=== PATIENT | male | born 1955 | race Caucasian/White ===

== ENCOUNTER 2016-06-23 18:54 | Observation (INO) | payer OTHER ==
[2016-06-23] MEDS ORDERED: ASPIRIN CHEW 81 MG TABLET PO STA (19:17)
--- NOTE | 2016-06-23 19:19 | ED Physician Documentation ---
PD HPI CHEST PAIN - Stated complaint Stated Complaint: CHEST PAIN - Chief complaint Chief Complaint: Cardiac - History obtained from History obtained from: Patient - History of Present Illness Timing - onset: Today Timing - onset during: Rest Timing - duration: Hours (1) Timing - details: Abrupt onset, Now resolved Pain level max: 6 Pain level now: 0 Quality: Pressure, Tightness, Aching Location: Substernal Radiation: Neck Improved by: Nothing Worsened by: No: Exertion, Inspiration, Eating, Movement, Palpation, Position Associated symptoms: Nausea. No: Shortness of air, Diaphoresis, Vomiting, Feeling faint / dizzy, General Weakness, Palpitations Similar symptoms before: Has not had sx before Recently seen: Not recently seen - Additional information Additional information: being worked up for possible Hemochromatosis. Review of Systems Ten Systems: 10 systems reviewed and negative Constitutional: denies: Fever, Chills Respiratory: denies: Cough, Wheezing GI: denies: Abdominal Pain, Nausea, Vomiting, Diarrhea Skin: denies: Rash Musculoskeletal: denies: Neck pain, Back pain Neurologic: denies: Headache PD PAST MEDICAL HISTORY - Past Medical History Past Medical History: Yes : Kidney stones - Past Surgical History Past Surgical History: Yes General: Appendectomy - Present Medications Home Medications: Ambulatory Orders Medication Instructions Recorded Confirmed Ibuprofen 600 mg QID PRN 07/05/14 07/05/14 Oxycodone HCl/Acetaminophen 1 each PO Q6H PRN #10 tablet 07/05/14 [Percocet 5-325 mg Tablet] diazePAM [Valium] 5 mg PO TID PRN #15 tablet 07/05/14 predniSONE [Deltasone] 40 mg PO DAILY 5 Days 07/05/14 - Allergies Allergies/Adverse Reactions: Allergies Allergy/AdvReac Type Severity Reaction Status Date / Time No Known Drug Allergies Allergy Verified 06/23/16 19:03 - Social History Does the pt smoke?: No Smoking Status: Never smoker Does the pt drink ETOH?: Yes Does the pt have substance abuse?: No PD ED PE NORMAL - Vitals Vital signs reviewed: Yes - General General: Alert and oriented X 3, No acute distress - HEENT HEENT: PERRL, Moist mucous membranes - Neck Neck: Supple, no meningeal sign, No bruit - Cardiac Cardiac: RRR - Respiratory Respiratory: No respiratory distress, Clear bilaterally - Abdomen Abdomen: Soft, Non tender - Back Back: No spinal TTP - Derm Derm: Warm and dry, No rash - Extremities Extremities: No edema, No calf tenderness / cord - Neuro Neuro: Alert and oriented X 3 - Psych Psych: Normal mood, Normal affect Results - Vitals Vitals: Vital Signs - 24 hr 06/23/16 06/23/16 06/23/16 18:58 19:24 19:36 Temperature 36.5 C Heart Rate 67 64 68 Respiratory 18 19 18 Rate Blood Pressure 171/99 H 173/104 H 135/91 H O2 Saturation 99 96 95 Oxygen O2 Source Room air - EKG (time done) 1859 Rate: Rate (enter#) (69) Rhythm: NSR [place]: Normal Intervals: Normal CA QRS: Normal Ischemia: Non specific changes Computer interpretation: Agree with computer - Labs Labs: Laboratory Tests 06/23/16 06/23/16 06/23/16 19:05 19:05 19:05 WBC 8.6 RBC 5.03 Hgb 15.3 Hct 46.0 MCV 91.4 MCH 30.5 MCHC 33.4 RDW 12.7 Plt Count 198 MPV 8.4 Neut # 4.2 Lymph # 3.2 [place] # 1.0 Eos # 0.2 Baso # 0.1 Absolute Nucleated RBC 0.00 Nucleated RBCs 0.0 Sodium 135 Potassium 4.2 Chloride 100 L Carbon Dioxide 26 Anion Gap 9.0 BUN 15 Creatinine 0.9 Estimated GFR (MDRD) 86 L Glucose 84 Calcium 9.6 Total Bilirubin 0.5 AST 28 ALT 31 Alkaline Phosphatase 93 Troponin I < 0.04 Total Protein 7.2 Albumin 4.6 Globulin 2.6 Albumin/Globulin Ratio 1.8 Lipase 36 - Rads (name of study) cxr Radiology: Prelim report reviewed, EMP read contemporaneously, See rad report ( Poor inspiration with mild left basilar atelectasis and/or early airspace disease. ) PD MEDICAL DECISION MAKING - ED course Complexity details: reviewed results, re-evaluated patient, considered differential (No ST elevation SC, no aortic dissection, no PE, no tension pneumothorax, no aortic aneurysm), d/w patient, d/w family ED course: Patient is a 60-year-old male who presents to the emergency department with substernal chest pain today. This resolved prior to arrival in the emergency department. Given aspirin here. He does have a strong family history of coronary artery disease. No acute findings on EKG, initial troponin is negative. Will place the patient in observation for serial cardiac enzymes and rule out SC. No evidence of aortic dissection. Discussed the case with Dr. Mackay, hospitalist who accepts This document was made in part using voice recognition software. While efforts are made to proofread this document, sound alike and grammatical errors may occur. Departure - Departure Disposition: ED Place in Observation Clinical Impression: Chest pain Qualifiers: Chest pain type: unspecified Qualified Code(s): R07.9 - Chest pain, unspecified Condition: Good Discharge Date/Time: 06/23/16 22:02
[2016-06-23 19:23] LABS: BASOPHILS # (AUTO) 0.1 10^3/uL (0.0-0.1); BASOPHILS % (AUTO) 1.3 %; EOSINOPHILS # (AUTO) 0.2 10^3/uL (0.0-0.7); EOSINOPHILS % (AUTO) 2.2 %; HGB - HEMOGLOBIN 15.3 g/dL (14.0-18.0); LYMPHOCYTES # (AUTO) 3.2 10^3/uL (1.5-3.5); LYMPHOCYTES % (AUTO) 37.3 %; MEAN CORPUSCULAR HEMOGLOBIN 30.5 pg (27.0-31.0); MEAN CORPUSCULAR HGB CONC 33.4 g/dL (32.0-36.0); MEAN CORPUSCULAR VOLUME 91.4 fL (80.0-94.0); MEAN PLATELET VOLUME 8.4 fL (7.4-11.4); MONOCYTES % (AUTO) 11.1 %; NEUTROPHILS # (AUTO) 4.2 10^3/uL (1.5-6.6); NEUTROPHILS % (AUTO) 48.1 %; RED BLOOD COUNT 5.03 10^6/uL (4.70-6.10); RED CELL DISTRIBUTION WIDTH 12.7 % (12.0-15.0); UNCORRECTED WHITE BLOOD COUNT 8.6 x10^3/uL; WHITE BLOOD COUNT 8.6 x10^3/uL (4.8-10.8)
[2016-06-23 19:30] LABS: ALBUMIN/GLOBULIN RATIO 1.8 (1.0-2.2); BILIRUBIN,TOTAL 0.5 mg/dL (0.2-1.0); CALCIUM 9.6 mg/dL (8.5-10.3); CREATININE 0.9 mg/dL (0.6-1.2); POTASSIUM 4.2 mmol/L (3.5-5.0); TOTAL PROTEIN 7.2 g/dL (6.7-8.2)
[2016-06-23] MEDS ORDERED: ASPIRIN CHEW 81 MG TABLET ONE (19:30)
--- NOTE | 2016-06-23 20:08 | XRAY Report ---
EXAM: CHEST RADIOGRAPHY EXAM DATE: 06/23/2016 07:25 PM. CLINICAL HISTORY: Chest pain. COMPARISON: PA chest and left rib series 02/15/2008. Chest CT 02/10/2006. TECHNIQUE: 1 view. FINDINGS: Lungs/Pleura: Diminished lung volumes. Mild left cardiophrenic angle opacity. No pneumothorax. Mediastinum: Within exam limitations, cardiomediastinal contour is normal. Other: Spurring of right transverse process and adjacent rib. IMPRESSION: 1. Poor inspiration with mild left basilar atelectasis and/or early airspace disease. [facility] Referring Provider Line: [phone] SITE ID: [id number]
--- NOTE | 2016-06-23 20:08 | XRAY Preliminary Report ---
Exam: XR Chest 1 View IMPRESSION: 1. Poor inspiration with mild left basilar atelectasis and/or early airspace disease. [facility] SITE ID: [id number]
[2016-06-23] MEDS ORDERED: diazePAM 5 MG TABLET PO PRN (20:24)
[2016-06-23] MEDS ORDERED: ACETAMINOPHEN 325 MG TABLET PO PRN (20:26)
[2016-06-23] MEDS ORDERED: oxyCODONE 5 MG TABLET PO PRN ×2 (20:26)
[2016-06-23] MEDS ORDERED: MORPHINE 2 MG/ML SYRINGE IVP PRN (20:26)
[2016-06-23] MEDS ORDERED: IBUPROFEN 600 MG TABLET PO PRN (20:26)
[2016-06-23] MEDS ORDERED: ONDANSETRON 4 MG/2 ML VIAL IVP PRN (20:26)
[2016-06-23] MEDS ORDERED: NITROGLYCERIN SL 0.4 MG TABLET SL PRN (20:26)
[2016-06-23] MEDS ORDERED: PROCHLORPERAZINE 10 MG/2 ML VIAL IVP PRN (20:26)
[2016-06-23] MEDS ORDERED: ZOLPIDEM 5 MG TABLET PO PRN (20:26)
[2016-06-23] MEDS ORDERED: SODIUM CHLORIDE FLUSH 0.9% 10 ML SYRINGE IVP PRN (20:26)
[2016-06-23] MEDS ORDERED: ATORVASTATIN 40 MG TABLET PO SCH (21:00)
[2016-06-23] MEDS: SODIUM CHLORIDE FLUSH 0.9% 10 ML SYRINGE IVP SCH (22:35)
--- NOTE | 2016-06-23 23:22 | HISTORY & PHYSICAL EXAMINATION ---
Chief Complaint - Chief Complaint Chief Complaint: Chest Pain History of Present Illness - Admitted From Admitted From:: Emergency Department - History Obtained From Records Reviewed: Yes History obtained from: Patient Exam Limitations: None - History of Present Illness HPI Comment/Other: Patient is a 60 yo male with past medical history of presumed diagnosis of hemachromatosis being worked up by hematology and family history of CAD who presented to the ED with complaint of chest pain. Pain started in the evening prior to dinner. Patient states he was sitting and relaxing, he had had 3 beers and then felt a tightness in his chest. Initially he tried to ignore it but it became more persistent and increased in intensity. Pain was located in the left chest and there was associated nausea. Patient described the pain as burning and sharp. He states he has had pain in his chest in the past from GERD but this was different. Patient states that he had also woken up in the middle of night the day before with a left sided chest pain that was worsened by touching his chest wall. It had resolved when he got up in the morning. The pain lasted for about 1 hour and had almost completely resolved by the time he arrived in the ED. Patient denies any fevers, chills, cough or shortness of air. He also denies any lower extremity swelling, orthopnea or PND. He stated there was nothing that made it better or worse. On presentation to the ED patient had stable vitals. EKG showed non specific T wave flattening and initial trop was negative. Patient placed in obs for rule out of ACS. Review of Systems - Constitutional Constitutional: denies: Fatigue, Fever, Chills, Malaise, Weakness, Poor appetite , Diaphoresis, Night sweats, Weight gain, Weight loss, Other - Eyes Eyes: denies: Pain, Irritation, Amaurosis, Blurred vision, Spots in vision, Field loss, Vision loss, Dipolpia, Corrective lenses, Other - Ears, Nose & Throat Ears, Nose & Throat: denies: Ear pain, Hearing loss, Hearing aids, Tinnitus, Vertigo, Nasal pain, Nasal discharge, Nosebleeds, Nasal obstruction, Nasal congestion, Postnasal drainage, Dentures, Sore throat, Hoarseness, Mouth lesions , Bleeding gums, Dental decay, Dental pain, Other - Cardiovascular Cariovascular: reports: Chest pain. denies: Irregular heart rate, Edema, Lightheadedness, Syncope, Exertional dyspnea, Decr. exercise tolerance, Orthopnea - Respiratory Respiratory: denies: Cough, Sputum production, Wheezing, Snoring, Hemoptysis, Orthopnea, SOB at rest, SOB with exertion, Apnea, Stridor, Pleuritic pain, Other - Gastrointestinal Gastrointestinal: reports: Nausea. denies: Abdominal pain, Abdominal distention , Constipation, Diarrhea, Black stools, Bloody stools, Vomiting - Genitourinary Genitourinary: denies: Dysuria, Frequency, Urgency, Hematuria, Incontinence, Flank pain, Nocturia, Urethral discharge, Sexual dysfunction, Other - Musculoskeletal Musculoskeletal: reports: Muscle pain (neck pain), Back pain, Muscle aches. denies: Stiffness, Limited range of motion, Muscle weakness, Gout, Joint pain, Joint swelling - Integumentary Integumentary: denies: Rash, Pruritis, Lesions, Dryness, Lumps, Acne, Pigment changes, Nail changes, Hair changes, Other - Neurological Neurological: denies: General weakness, Focal weakness, Headache, Dizziness, Numbness, Memory problems, Pre-existing deficit, Abnormal gait, Seizures, Incoordination, Slurred speech, Other - Psychiatric Psychiatric: denies: Depression - Endocrine Endocrine: denies: Polyuria, Polydypsia, Polyphagia, Intolerance to cold, Intolerance to heat, Other History - Past Medical History Cardiovascular: reports: None Respiratory: reports: None Neuro: reports: None Endocrine/Autoimmune: reports: None GI: reports: None : reports: Kidney stones HEENT: reports: None Psych: reports: None Musculoskeletal: reports: None Derm: reports: None MRSA Hx?: No Other Past Medical History: Hematochromatosis - Past Surgical History General: reports: Appendectomy - Family & Social History Family History: Mother: Cancer (Lung), Father: CAD (3 brothers all before 65 with MIs and sister had CAD), Sister: CAD, Diabetes, Type 2, Brother: CAD Living arrangement: At home Living Situation: With spouse/s.o. Social History Notes: 3 Kids, live in [place] since 1968, for 33 years , works in construction. - Substance History Use: Uses substance without health or social issues: Alcohol (2-3 beers a day) - POLST Patient has POLST: No POLST Status: Full Code Meds/Allgy - Home Medications Home Medications: Ambulatory Orders Medication Instructions Recorded Confirmed Ibuprofen 600 mg QID PRN 07/05/14 07/05/14 Oxycodone HCl/Acetaminophen 1 each PO Q6H PRN #10 tablet 07/05/14 [Percocet 5-325 mg Tablet] diazePAM [Valium] 5 mg PO TID PRN #15 tablet 07/05/14 predniSONE [Deltasone] 40 mg PO DAILY 5 Days 07/05/14 - Allergies Allergies/Adverse Reactions: Allergies Allergy/AdvReac Type Severity Reaction Status Date / Time No Known Drug Allergies Allergy Verified 06/23/16 19:03 Exam - Vital Signs Reviewed Vital Signs: Yes Vital Signs: Vital Signs x48h Temp Pulse Pulse Resp BP BP Pulse Ox 06/23/16 22:10 36.7 C 55 L 18 172/90 H 98 06/23/16 20:52 59 L 16 132/88 H 98 - Physical Exam General Appearance: positive: No acute distress, Alert, Anxious Eyes Bilateral: positive: Normal inspection, PERRL, EOMI, No lid inflammation, Conjunctivae nml, No scleral icterus ENT: positive: ENT inspection nml, Pharynx nml, No signs of dehydration. negative: Purulent nasal drainage, Pharyngeal erythema, Oral lesions Neck: positive: Nml inspection, Thyroid nml, No JVD, Trachea midline. negative : Thyromegaly, Lymphadenopathy (R), Lymphadenopathy (L) Respiratory: positive: Chest non-tender, No respiratory distress, Breath sounds nml. negative: Wheezes, Rales, Rhonchi Cardiovascular: positive: Regular rate & rhythm, No murmur, No gallop Peripheral Pulses: positive: 2+ Abdomen: positive: Non-tender, No organomegaly, Nml bowel sounds, No distention. negative: Guarding, Rebound, Hepatomegaly, Splenomegaly Back: positive: Other (Contracted muscles in the neck) Skin: positive: Color nml, No rash, Warm Extremities: positive: Non-tender, Full ROM, Nml appearance, No pedal edema Neurologic/Psychiatric: positive: Oriented x3, CN's nml (2-12), Motor nml, Sensation nml, Mood/affect nml Conclusion/Plan - Problem List (1) Chest pain Conclusion/Plan: Presented with left sided chest pain at rest, resolved after 1 hour without any intervention Patient has risk factors of hemachromatosis which can cause dilated cardiomyopathy and family history of CAD Initial EKG showed non specific t wave changes but no ST elevations Initial trop negative Place in obs for ACS rule out Plan: Tele Serial Trops ASA, Lipitor Lipid profile Echo in am If tests negative then will need stress test as outpatient Qualifiers: Chest pain type: unspecified Qualified Code(s): R07.9 - Chest pain, unspecified (2) Back spasm Conclusion/Plan: Back and neck spasms with obvious muscle contractions of neck Patient does not want muscle relaxant Ibuprofen for pain (3) Hemochromatosis Conclusion/Plan: Being worked up has elevated ferritin Patient will follow up with hematology and PCP Donating blood tomorrow - Lab Results Lab results reviewed: Yes Fish Bones: 06/23/16 19:05 06/23/16 19:05 - Diagnostic Imaging Results Diagnostic Imaging Results: positive: Final report reviewed - EKG Results EKG Interpreted Independently: Yes EKG Findings: non specific changes Issues/Core Measures - Anticipated LOS Anticipated Stay Length: Less than 2 midnights - DVT/VTE - Prophylaxis VTE/DVT Prophylaxis med ordered at admit?: Yes
[2016-06-24 02:23] LABS: BASOPHILS # (AUTO) 0.1 10^3/uL (0.0-0.1); BASOPHILS % (AUTO) 1.2 %; EOSINOPHILS # (AUTO) 0.2 10^3/uL (0.0-0.7); EOSINOPHILS % (AUTO) 3.1 %; HCT - HEMATOCRIT 41.5 % (42.0-52.0); HGB - HEMOGLOBIN 14.4 g/dL (14.0-18.0); LYMPHOCYTES # (AUTO) 2.4 10^3/uL (1.5-3.5); MEAN CORPUSCULAR HEMOGLOBIN 31.3 pg (27.0-31.0); MEAN CORPUSCULAR HGB CONC 34.8 g/dL (32.0-36.0); MEAN PLATELET VOLUME 8.3 fL (7.4-11.4); MONOCYTES # (AUTO) 0.7 10^3/uL (0.0-1.0); MONOCYTES % (AUTO) 12.1 %; NEUTROPHILS # (AUTO) 2.5 10^3/uL (1.5-6.6); NEUTROPHILS % (AUTO) 42.6 %; NUCLEATED RED BLOOD CELLS AUTO 0.1 /100WBC; RED BLOOD COUNT 4.61 10^6/uL (4.70-6.10)
[2016-06-24 02:38] LABS: ALBUMIN/GLOBULIN RATIO 1.6 (1.0-2.2); BILIRUBIN,TOTAL 0.7 mg/dL (0.2-1.0); BUN - BLOOD UREA NITROGEN 17 mg/dL (6-20); CALCIUM 8.9 mg/dL (8.5-10.3); CARBON DIOXIDE - CO2 24 mmol/L (21-32); CHLORIDE 105 mmol/L (101-111); CHOLESTEROL 172 mg/dL; CREATININE 0.8 mg/dL (0.6-1.2); GFR - MDRD 99 (>89); GLUCOSE 102 mg/dL (70-100); HDL CHOLESTEROL 57 mg/dL; LDL/HDL RATIO 1.5 (<3.6); POTASSIUM 4.2 mmol/L (3.5-5.0); SODIUM 137 mmol/L (135-145); TOTAL PROTEIN 6.4 g/dL (6.7-8.2); TRIGLYCERIDES 160 mg/dL; VLDL CHOLESTEROL 32 mg/dL
[2016-06-24] MEDS ORDERED: PANTOPRAZOLE 40 MG TABLET PO SCH (07:00)
[2016-06-24] MEDS: SODIUM CHLORIDE FLUSH 0.9% 10 ML SYRINGE IVP SCH (07:14)
[2016-06-24 08:41] VITALS: BP 139/87
[2016-06-24] MEDS ORDERED: ENOXAPARIN 40 MG/0.4 ML SYRINGE SUBQ SCH (09:00)
[2016-06-24] MEDS ORDERED: POLYETHYLENE GLYCOL 3350 17 GM PACKET PO SCH (09:00)
[2016-06-24] MEDS ORDERED: ASPIRIN EC 81 MG TABLET PO SCH (09:00)
[2016-06-24] MEDS ORDERED: predniSONE 20 MG TABLET PO SCH (09:00)
--- NOTE | 2016-06-24 09:27 | Discharge Plan ---
Discharge Plan Disposition: 01 Home, Self Care Condition: Stable Diet: Regular Activity Restrictions: Activity as Tolerated Shower Restrictions: No Driving Restrictions: No Weight Bearing: Full Weight Additional Instructions or Follow Up instructions: Chest pain (with family history of coronary disease) Work up included EKG (no findings suggestive of low oxygen to heart): normal rhythm, nonspecific changes in the inferior (lower heart) leads Chest X ray; some mild deflation of left lower lung heart enzymes; normal (i.e. no leakage of heart enzymes that would suggest cardiac muscle injury Echocardiogram: no abnormal heart wall motion, normal squeeze of muscle, no significant valve abnormality (copy given to you) This workup indicates you did not have an acute coronary event, but does not mean you do not have coronary disease. You do not smoke, dont have diabetes, nor high blood pressure and cholesterol panel looks ok, but family history is still considered a risk so it is still recommended to get a stress test cholesterol panel Total cholesterol 172 LDL 83 HDL 57 triglycerides 160 (pretty good numbers) Recommendation; follow up with PCP ; Arrange outpatient cardiac stress test Consider repeat chest Xray continue with your hematogist follow up;outpatient work up for hemochromatosis No Smoking: If you smoke, Please STOP! Call for help. Follow-up with: Waldo Sorensen MD [Primary Care Provider] - 1 Week (outpatient stress test recommended)
--- NOTE | 2016-06-25 08:32 | DISCHARGE SUMMARY ---
DATE OF ADMISSION: 06/23/2016 DATE OF DISCHARGE: 06/24/2016 PRIMARY CARE PROVIDER: Dr. Sorensen DISCHARGE DIAGNOSES 1. Chest pain. 2. Gastroesophageal reflux disease. SECONDARY DIAGNOSIS: Current workup for possible hemochromatosis by Hematology. CONSULTATIONS: None. PROCEDURES: None. DIAGNOSTIC IMAGING STUDIES 1. Chest x-ray 06/23/2016: mild left basilar atelectasis and/or early airspace disease. 2. Admission EKG: Normal sinus rhythm with a rate of approximately 70 with a left axis. Borderline inferior T-wave abnormalities with T-wave flattening, nonspecific. No T-wave inversions or ST elevations. 3. Echocardiogram 06/24/2016: Normal LV size and function with an EF of 55% to 60%. No wall motion abnormalities. Valves are unremarkable, notable only for trace mitral regurgitation, trace tricuspid regurg. DIAGNOSTIC LABORATORY STUDIES: Troponin less than 0.04 x3. Chemistries: Sodium 135, potassium 4.2, chloride 100, bicarbonate 26, BUN 15, creatinine 0.9, glucose 84. Cholesterol panel: Total cholesterol 172, LDL 83, HDL 57, triglycerides 160. Admission CBC: White count 8.6, hemoglobin and hematocrit 15 and 46, and 198,000 platelets. HOSPITAL COURSE BY PROBLEM 1. Chest pain. The patient is a 61-year-old gentleman who presented to the emergency room with chest pain. This began at rest. He does not have a prior history of coronary artery disease. He does not have hypertension, diabetes nor hypercholesterolemia with a relatively unremarkable cholesterol panel done here. He is a nonsmoker, although he does have a family history of coronary artery disease in his siblings, all of whom are smokers. The pain developed when he was resting in a chair after having 3 beers. He described it as localized left sided tightness, which was also burning and sharp. He does note that he has GERD as well. He lately has even been going to bed with Tums at the bedside in case he needs them. He felt that his known GERD discomfort was somewhat different than his current pain and presented to the emergency room for workup. He denies that he has any new exertional chest pain, diaphoresis, shortness of breath, or arm pain although his activity is somewhat limited due to an elbow injury and associated pain. He did note that this chest pain last night did have some element of nausea. In the emergency room, an EKG was without acute ischemic changes. His vital signs were unremarkable other than the very initial blood pressure of 171/99. Without intervention, this reduced to 132/85. TroponinsWere less than 0.04 x3. He had an echocardiogram which showed no wall motion abnormalities, normal LV size and function, and no significant valvular abnormalities. This is somewhat atypical for an ischemic presentation. He is aware that we do recommend an outpatient stress test given his family history. Other potential causes for this chest pain given his report of escalating GERD symptoms, he does take Tums, but he was given a prescription for Prilosec to try for 1 month to evaluate if that is an intervention that he should continue. He can follow up with Dr. Sorensen . For discharge medications, there is no change in his medications. He can continue p.r.n. Advil for his right elbow pain. He has a prescription for a 30-day supply of Prilosec 20 mg once daily. He is to follow up with Dr. Sorensen and recommend a cardiac stress test as an outpatient in the relatively near future. 2. Workup for an elevated ferritin. He is already in the hands of a business economist who is evaluating him for possible hemochromatosis based on evidently eye changes and has already been evaluated. He is actually going to have phlebotomy done after discharge today. PHYSICAL EXAMINATION ON DISCHARGE GENERAL: The patient is a very pleasant, younger than stated age appearing man lying in bed. His is present. He is alert, oriented, appropriate, in no acute distress, and animated. He is robust appearing. VITAL SIGNS: Afebrile at 36.7, heart rate 54, blood pressure 139/87, respiratory rate 20, 97% on room air. CHEST: Clear to auscultation. Unlabored respirations on room air. HEART: Regular S1, S2 with no appreciable extra sounds. ABDOMEN: Modestly obese, soft, nondistended. Positive bowel sounds. EXTREMITIES: No peripheral edema. JOB #: [id number] EXT JOB #:[id number] MTDD
== END 2016-06-24 12:57 | disposition home or self-care (01) ==
LOC: ED 18:54 → MS 20:26 → UNDOADMOB 20:26
PROVIDERS: ADMIT Internal Medicine; ATTEND Nurse Practitioner
DX: R07.9 Chest pain, unspecified (principal); K21.9 Gastro-esophageal reflux disease without esophagitis; Z82.49 Family history of ischemic heart disease and other diseases of the circulatory system
CPT/HCPCS: 36415; 71010; 80053; 80061; 83690; 84484; 85025; 93010; 93306; 96372; 99217; 99218; 99284; 99285; A9270; J1650; J7512

== ENCOUNTER 2016-07-31 07:10 | Outpatient (CLI) | payer OTHER ==
[2016-07-31] MEDS ORDERED: IOPAMIDOL-300 100 ML VIAL IVP ONE (07:43)
--- NOTE | 2016-07-31 09:33 | CT Report ---
CT OF THE BRAIN WITH AND WITHOUT CONTRAST: 07/31/2016 CLINICAL INDICATION: Blurred vision, persistent headache. TECHNIQUE: Axial CT images of the brain were obtained prior to and following 50 mL of Isovue-[address] previous CT is available for comparison. FINDINGS: The ventricles and sulci demonstrate mild symmetric enlargement, compatible with atrophy. The basilar cisterns are patent. There is no evidence of intracranial hemorrhage, mass lesion, or mid line shift. No abnormal enhancement is seen following contrast administration. The visualized orbital contents and paranasal sinuses are unremarkable. IMPRESSION: MILD ATROPHY. NO EVIDENCE OF HEMORRHAGE OR MASS EFFECT. NO ABNORMAL ENHANCEMENT. In accordance with CT protocol optimization, one or more of the following dose reduction techniques w ere utilized for this exam: automated exposure control, adjustment of mA and/or KV based on patient size, or use of iterative reconstructive technique. JOB #: [id number] EXT JOB #:[id number]
== END 2016-07-31 07:11 | disposition home or self-care (01) ==
LOC: DI 07:10
PROVIDERS: ATTEND Family Medicine
DX: H53.8 Other visual disturbances (principal); G31.9 Degenerative disease of nervous system, unspecified; R51 Headache
CPT/HCPCS: 70470; Q9967

== ENCOUNTER → 2016-08-31 | Outpatient (CLI) | payer OTHER | LOC: LAB.WCP 08:00 | PROVIDERS: ATTEND Family Medicine | DX: Z00.01 Encounter for general adult medical examination with abnormal findings (principal); M25.50 Pain in unspecified joint; I10 Essential (primary) hypertension | CPT/HCPCS: 36415; 81256 ==

== ENCOUNTER 2017-07-02 14:33 | Emergency (ER) | payer BC, OTHER ==
[2017-07-02] MEDS ORDERED: IOPAMIDOL-300 100 ML VIAL ONE (14:50)
[2017-07-02 15:10] LABS: BASOPHILS # (AUTO) 0.1 10^3/uL (0.0-0.1); BASOPHILS % (AUTO) 0.8 %; EOSINOPHILS # (AUTO) 0.1 10^3/uL (0.0-0.7); EOSINOPHILS % (AUTO) 0.8 %; HGB - HEMOGLOBIN 12.9 g/dL (14.0-18.0); LYMPHOCYTES # (AUTO) 2.1 10^3/uL (1.5-3.5); LYMPHOCYTES % (AUTO) 22.2 %; MEAN CORPUSCULAR HGB CONC 34.7 g/dL (32.0-36.0); MEAN CORPUSCULAR VOLUME 89.3 fL (80.0-94.0); MEAN PLATELET VOLUME 7.9 fL (7.4-11.4); MONOCYTES # (AUTO) 1.1 10^3/uL (0.0-1.0); MONOCYTES % (AUTO) 11.9 %; NEUTROPHILS # (AUTO) 6.1 10^3/uL (1.5-6.6); NEUTROPHILS % (AUTO) 64.3 %; PLT - PLATELET COUNT 218 10^3/uL (130-450); RED BLOOD COUNT 4.16 10^6/uL (4.70-6.10); RED CELL DISTRIBUTION WIDTH 12.4 % (12.0-15.0); WHITE BLOOD COUNT 9.4 x10^3/uL (4.8-10.8)
[2017-07-02 15:16] LABS: ALBUMIN 4.1 g/dL (3.2-5.5); ALBUMIN/GLOBULIN RATIO 1.3 (1.0-2.2); BILIRUBIN,TOTAL 0.8 mg/dL (0.2-1.0); CREATININE 1.1 mg/dL (0.6-1.2); TOTAL PROTEIN 7.2 g/dL (6.7-8.2)
[2017-07-02] MEDS ORDERED: IOPAMIDOL-300 100 ML VIAL IVP ONE (15:47)
[2017-07-02] MEDS ORDERED: CIPROFLOXACIN 400 MG/200 ML 200 ML IV ONE (15:53)
--- NOTE | 2017-07-02 15:58 | ED Physician Documentation ---
PD HPI ABD PAIN - Stated complaint Stated Complaint: L SIDE PX - Chief complaint Chief Complaint: Abd Pain - History obtained from History obtained from: Patient, Family - History of Present Illness Timing - onset: How many weeks ago (1) Timing - duration: Weeks (1) Timing - details: Gradual onset, Still present, Other (now worse) Quality: Cramping, Sharp, Pain Location: LLQ Improved by: Laying still Worsened by: Moving, Breathing, Position, Palpation Associated symptoms: Nausea, Constipation. No: Vomiting, Hematemesis, Diarrhea Similar symptoms before: Has not had sx before Recently seen: Clinic - Additional information Additional information: 61-year-old male is a week of left lower quadrant abdominal pain that is progressively gotten worse and today it is bad enough that he is having a hard time even walking around. He initially had some improvement with bowel movement and that has not helped at all now. He was seen in his doctor's office and sent up to the emergency department for evaluation as he did very tender left lower quadrant with concern for diverticulitis with perforation. Review of Systems Constitutional: reports: Chills Eyes: denies: Decreased vision Ears: denies: Ear pain Nose: denies: Rhinorrhea / runny nose, Congestion Throat: denies: Sore throat Cardiac: denies: Chest pain / pressure, Palpitations Respiratory: denies: Dyspnea, Cough GI: reports: Abdominal Pain, Nausea, Constipation. denies: Vomiting, Diarrhea : denies: Dysuria, Frequency Skin: denies: Rash Musculoskeletal: denies: Neck pain, Back pain, Extremity pain PD PAST MEDICAL HISTORY - Past Medical History Past Medical History: Yes Cardiovascular: Hypertension Respiratory: None Endocrine/Autoimmune: None GI: None : Kidney stones HEENT: None Psych: None Musculoskeletal: None Derm: None - Past Surgical History Past Surgical History: Yes General: Appendectomy - Present Medications Home Medications: Ambulatory Orders Medication Instructions Recorded Confirmed Ibuprofen 400 - 600 mg PO Q6H PRN 07/05/08/08/16 Amox/Clav 875/125 [Augmentin] 1 each PO Q12H #14 tablet 07/02/17 HYDROcod/ACETAM 5/325 [[place] 5/325] 1 - 2 ea PO Q6H PRN #15 tablet 07/02/17 - Allergies Allergies/Adverse Reactions: Allergies Allergy/AdvReac Type Severity Reaction Status Date / Time No Known Drug Allergies Allergy Verified 07/02/17 14:41 - Social History Does the pt smoke?: No Smoking Status: Never smoker Does the pt drink ETOH?: Yes Does the pt have substance abuse?: No - Immunizations Immunizations are current?: No - POLST Patient has POLST: No POLST Status: Full Code PD ED PE NORMAL - Vitals Vital signs reviewed: Yes (hypertensive ) - General General: Alert and oriented X 3, No acute distress, Well developed/nourished - HEENT HEENT: Atraumatic, PERRL, EOMI - Neck Neck: Supple, no meningeal sign - Cardiac Cardiac: RRR, No murmur - Respiratory Respiratory: No respiratory distress, Clear bilaterally - Abdomen Abdomen: Soft, Other (specific left lower quadrant tenderness to palpation with guarding, referred tenderness and rebound tenderness) - Back Back: No CVA TTP, No spinal TTP - Derm Derm: Normal color, Warm and dry, No rash - Extremities Extremities: No deformity, No edema - Neuro Neuro: No motor deficit, No sensory deficit Eye Opening: Spontaneous Motor: Obeys Commands Verbal: Oriented GCS Score: 15 - Psych Psych: Normal mood, Normal affect Results - Vitals Vitals: Vital Signs - 24 hr 07/02/17 14:38 Temperature 37 C Heart Rate 79 Respiratory 17 Rate Blood Pressure 144/95 H O2 Saturation 98 Oxygen O2 Source Room air - Labs Labs: Laboratory Tests 07/02/17 07/02/17 14:59 14:59 WBC 9.4 RBC 4.16 L Hgb 12.9 L Hct 37.2 L MCV 89.3 MCH 31.0 MCHC 34.7 RDW 12.4 Plt Count 218 MPV 7.9 Neut # 6.1 Lymph # 2.1 Evangeline # 1.1 H Eos # 0.1 Baso # 0.1 Absolute Nucleated RBC 0.00 Nucleated RBC % 0.0 Sodium 134 L Potassium 3.7 Chloride 102 Carbon Dioxide 24 Anion Gap 8.0 BUN 18 Creatinine 1.1 Estimated GFR (MDRD) 68 L Glucose 105 H Calcium 9.0 Total Bilirubin 0.8 AST 27 ALT 31 Alkaline Phosphatase 70 Total Protein 7.2 Albumin 4.1 Globulin 3.1 Albumin/Globulin Ratio 1.3 Lipase 29 - Rads (name of study) CT abdomen and pelvis with Radiology: Prelim report reviewed (Impression: 1. Epiploic appendagitis. 2. Mild diverticulosis and other chronic or incidental findings.), EMP read indepedently, See rad report PD MEDICAL DECISION MAKING - ED course Complexity details: reviewed results, re-evaluated patient, considered differential, d/w patient, d/w family ED course: 61 y/o male with left lower quadrant pain. He has had pain for 4 days and the pain has mounted. It appears in the left lower quadrant, he is tender on examination, he does have on exam to have some peritoneal signs and a CT scan of the abdomen and pelvis is obtained with contrast. This demonstrates epiploic appendagitis. My initial thought with the patient is that he would have diverticulitis and his exam was consistent with that and I began intravenous Cipro. The patient's presentation was concerning enough for diverticulitis and I consulted the surgeon who was in the department and reviewed the case with him he recommended administration of some antibiotic as well. I discussed the results and findings with the patient and his including the expected benign nature of the course of the disease recommendations of the surgeon and the need for pain control. I have recommended he not get onto his heavy equipment for operating it until his pain is resolved. Departure - Departure Clinical Impression: Epiploic appendagitis Condition: Stable Follow-Up: Sridhar Mills MD [Primary Care Provider] - Quan Aldana MD [Provider Admit Priv/Credential] - Prescriptions: Amox/Clav 875/125 [Augmentin] 1 each PO Q12H #14 tablet HYDROcod/ACETAM 5/325 [[place] 5/325] 1 - 2 ea PO Q6H PRN #15 tablet PRN Reason: Pain Comments: Today it appears to have and inflammation of an appendage to the colon. This can be quite painful but should be self limiting and the expectation is pain resolving within 3-14 days. Pain control should be done with ibuprofen and pain not controlled with ibuprofen can be controlled with hydrocodone prescribed. If you have worsening or persistent pain follow-up with the surgeon as recommended.
--- NOTE | 2017-07-02 16:05 | CT Report ---
EXAM: CT ABDOMEN AND PELVIS EXAM DATE: 07/02/2017 03:47 PM. CLINICAL HISTORY: LLQ pain/tender. COMPARISONS: None. TECHNIQUE: Routine helical CT imaging was performed through the abdomen and pelvis. IV contrast: 100M L ISOVUE 300. Enteric contrast: No. Reconstructions: Coronal and sagittal. In accordance with CT protocol optimization, one or more of the following dose reduction techniques w ere utilized for this exam: automated exposure control, adjustment of mA and/or KV based on patient s ize, or use of iterative reconstructive technique. FINDINGS: Lung Bases: Unremarkable. Liver: Normal. No masses. Gallbladder/Bile Ducts: Unremarkable. Spleen: Normal. Pancreas: Normal. Adrenal Glands: Normal. Kidneys: Normal. No masses or hydronephrosis. Peritoneal Cavity/Bowel: Mild colonic diverticulosis. Localized infiltration adjacent to the distal d escending colon has central ovoid lucency compatible with epiploic appendagitis, a benign self-limite d process. Otherwise unremarkable. No free fluid, free air, or lymphadenopathy. Unremarkable region o f appendix. Pelvic Organs: Normal. The bladder and visualized pelvic organs are within normal limits. Vasculature: No aneurysms or other significant abnormality. Bones: Degenerative changes. Partial ankylosis of SI joints. Other: None. IMPRESSION: 1. Epiploic appendagitis. 2. Mild diverticulosis and other chronic or incidental findings. [facility] Referring Provider Line: [phone] SITE ID: [id number]
[2017-07-02] MEDS ORDERED: KETOROLAC 60 MG/2 ML VIAL IVP STA (16:43)
[2017-07-02 17:21] VITALS: BP 144/105
== END 2017-07-02 17:30 | disposition home or self-care (01) ==
LOC: ED 14:33
DX: K63.89 Other specified diseases of intestine (principal); I10 Essential (primary) hypertension; Z87.442 Personal history of urinary calculi
CPT/HCPCS: 36415; 74177; 80053; 83690; 85025; 87040; 96365; 96375; 99283; 99284; Q9967

== ENCOUNTER 2018-12-04 10:12 | Outpatient (CLI) | payer BC, OTHER ==
--- NOTE | 2018-12-04 12:01 | XRAY Report ---
Reason: ROTATOR CUFF TEAR, RIGHT M75.101 Procedure Date: 12/04/2018 Accession Number: [id number] / [id number] Procedure: XRS - Shoulder 3 View RT CPT Code: FULL RESULT: EXAM: RIGHT SHOULDER RADIOGRAPHY EXAM DATE: 12/04/2018 10:40 AM. CLINICAL HISTORY: Rotator cuff tear, right. M75.101. COMPARISON: CHEST 1 VIEW 06/23/2016 7:27 PM. TECHNIQUE: 3 views. FINDINGS: Bones: Normal. No fracture or bone lesion. Joints: The glenohumeral and acromioclavicular joints are normally located with mild degenerative changes of the AC joint. Soft tissues: There is an amorphous calcification over the lateral aspect of the humeral head, calcific tendinitis. IMPRESSION: Suspect calcific tendinitis. [facility]
== END 2018-12-04 10:13 | disposition home or self-care (01) ==
LOC: DI.S 10:12
PROVIDERS: ADMIT Internal Medicine; ATTEND Family Medicine
DX: M19.011 Primary osteoarthritis, right shoulder (principal)

== ENCOUNTER 2019-03-17 09:50 | Outpatient (CLI) | payer OTHER ==
[2019-03-17 17:44] LABS: BASOPHILS # (AUTO) 0.1 10^3/uL (0.0-0.1); BASOPHILS % (AUTO) 0.8 %; EOSINOPHILS # (AUTO) 0.1 10^3/uL (0.0-0.7); EOSINOPHILS % (AUTO) 2.2 %; HGB - HEMOGLOBIN 15.4 g/dL (14.0-18.0); LYMPHOCYTES % (AUTO) 30.7 %; MEAN CORPUSCULAR HEMOGLOBIN 31.3 pg (27.0-31.0); MEAN CORPUSCULAR HGB CONC 32.8 g/dL (32.0-36.0); MEAN CORPUSCULAR VOLUME 95.3 fL (80.0-94.0); MEAN PLATELET VOLUME 10.5 fL (7.4-11.4); MONOCYTES # (AUTO) 0.7 10^3/uL (0.0-1.0); MONOCYTES % (AUTO) 11.4 %; NEUTROPHILS # (AUTO) 3.5 10^3/uL (1.5-6.6); NEUTROPHILS % (AUTO) 54.6 %; PLT - PLATELET COUNT 209 10^3/uL (130-450); RED BLOOD COUNT 4.92 10^6/uL (4.70-6.10); RED CELL DISTRIBUTION WIDTH 12.4 % (12.0-15.0); WHITE BLOOD COUNT 6.4 x10^3/uL (4.8-10.8)
[2019-03-17 18:13] LABS: ALBUMIN 4.5 g/dL (3.2-5.5); ALBUMIN/GLOBULIN RATIO 1.6 (1.0-2.2); ALKALINE PHOSPHATASE 70 IU/L (42-121); ALT ALANINE AMINOTRANSFERASE 31 IU/L (10-60); AST ASPARTATE AMINOTRANSFERASE 25 IU/L (10-42); BILIRUBIN,TOTAL 0.7 mg/dL (0.2-1.0); BUN - BLOOD UREA NITROGEN 16 mg/dL (6-20); CALCIUM 9.7 mg/dL (8.5-10.3); CARBON DIOXIDE - CO2 26 mmol/L (21-32); CHLORIDE 103 mmol/L (101-111); CHOL/HDL RATIO 2.5 (<5.0); CHOLESTEROL 188 mg/dL; GFR - MDRD 76 (>89); GLUCOSE 101 mg/dL (70-100); HDL CHOLESTEROL 74 mg/dL; LDL CHOLESTEROL,CALCULATED 99 mg/dL; LDL/HDL RATIO 1.3 (<3.6); SODIUM 138 mmol/L (135-145); TOTAL PROTEIN 7.3 g/dL (6.7-8.2); VLDL CHOLESTEROL 15 mg/dL
[2019-03-18 12:34] LABS: HEPATITIS C ANTIBODY NON-REACTIVE (NON-REACTIVE)
[2019-03-18 13:58] LABS: HIV AG/AB 4TH GEN NON-REACTIVE (NON-REACTIVE)
== END 2019-03-17 09:51 | disposition home or self-care (01) ==
LOC: LAB.S 09:50
PROVIDERS: ATTEND Registered Nurse
DX: Z00.00 Encounter for general adult medical examination without abnormal findings (principal); I10 Essential (primary) hypertension
CPT/HCPCS: 36415; 80053; 80061; 83721; 84153; 84443; 85025; 86803; 87389

== ENCOUNTER 2020-06-15 18:09 | Emergency (ER) | payer OTHER ==
--- NOTE | 2020-06-15 19:09 | ED Physician Documentation ---
PD HPI OPHTHO - Stated complaint Stated Complaint: GLASS IN LT EYE - Chief complaint Chief Complaint: Heent - History obtained from History obtained from: Patient - History of Present Illness Timing - onset: Enter time (17:30) Timing - details: Abrupt onset Location: Left Quality / character: Other (FB sensation, "gritty" per patient) Associated symptoms: FB sensation Recently seen: Not recently seen - Additional information Additional information: approximately 5:30 PM today, patient was gently pushing on broken safety glass when it unexpected suddenly fell apart and patient felt some of the safety glass got into his left eye. Patient does not wear contacts or glasses. He c/o ongoing "gritty" FB sensation left eye Review of Systems Eyes: reports: Irritation, Other (FB sensation left eye). denies: Loss of vision, Decreased vision, Photophobia, Discharge PD PAST MEDICAL HISTORY - Past Medical History Past Medical History: Yes Cardiovascular: None Respiratory: None Endocrine/Autoimmune: None GI: None : Kidney stones HEENT: None Psych: None Musculoskeletal: None Derm: None - Past Surgical History Past Surgical History: Yes General: Appendectomy - Allergies Allergies/Adverse Reactions: Allergies Allergy/AdvReac Type Severity Reaction Status Date / Time No Known Drug Allergies Allergy Verified 06/15/20 18:20 - Social History Does the pt smoke?: No Smoking Status: Never smoker Does the pt drink ETOH?: Yes ETOH Use: Beer Does the pt have substance abuse?: No - Immunizations Immunizations are current?: Yes - POLST Patient has POLST: No POLST Status: Full Code PD ED PE NORMAL - Vitals Vital signs reviewed: Yes - General General: Alert and oriented X 3, No acute distress, Well developed/nourished - HEENT HEENT: PERRL, EOMI PD ED PE EXPANDED - Eyes Eyes: Left eye, Normal eyelids, No eyelid FB (everted), Nl conjunctiva/sclera, Anterior chambers clear. No: Corneal FB, Corneal abrasion, Fluorescein uptake (left eye (fluorescein)) Results - Vitals Vitals: Vital Signs - 24 hr 06/15/20 06/15/20 18:21 20:54 Temperature 36.5 C 36.6 C Heart Rate 64 64 Respiratory 16 16 Rate Blood Pressure 102/71 122/84 H O2 Saturation 98 99 Oxygen O2 Source Room air PD MEDICAL DECISION MAKING - ED course Complexity details: considered differential, d/w patient ED course: FB sensation left eye but no fluorescein uptake noted and no FB seen under slit- lamp exam including with eversion of upper lid. polytrim drops provided due to suspicion of corneal abrasion although there was no uptake visualized on my exam Departure - Departure Disposition: 01 Home, Self Care Clinical Impression: Foreign body in eye Qualifiers: Encounter type: initial encounter Laterality: left Qualified Code(s): T15.92XA - Foreign body on external eye, part unspecified, left eye, initial encounter Condition: Good Instructions: ED Eye Particle Conjunctiva FB Rslv Comments: If your symptoms have not resolved by tomorrow morning, contact your primary care provider's office to arrange follow-up; it would be ideal if you follow up with an senior systems developer, but this might require a referral from your doctor if you are not already established with one. USE THE ANTIBIOTIC DROPS FOLLOWS (these were provided tonight when you were discharged from the ER): one drop in left eye three times per day for 5 days Discharge Date/Time: 06/15/20 21:01
[2020-06-15] MEDS ORDERED: PROPARACAINE 0.5% OPHTH DROPS 15 ML LEFTEYE STA (19:11)
[2020-06-15] MEDS ORDERED: POLYMYXIN B/TRIMETH OPHTH DROPS LEFTEYE STA (20:37)
[2020-06-15 20:55] VITALS: BP 122/84
== END 2020-06-15 21:01 | disposition home or self-care (01) ==
LOC: ED 18:09
DX: T15.92XA Foreign body on external eye, part unspecified, left eye, initial encounter (principal); X58.XXXA Exposure to other specified factors, initial encounter; Y93.89 Activity, other specified
CPT/HCPCS: 99281; 99282; A9270; J3490

== ENCOUNTER 2020-08-09 08:00 | Outpatient (CLI) | payer OTHER ==
--- NOTE | 2020-08-09 11:56 | XRAY Report ---
PROCEDURE: Chest 2 View X-Ray INDICATIONS: CHEST PAIN TECHNIQUE: 2 view(s) of the chest. COMPARISON: X-ray chest 10/01/2007 FINDINGS: Surgical changes and devices: None. Lungs and pleura: No pleural effusions or pneumothorax. Lungs are clear. Mediastinum: Mediastinal contours are normal. Heart size is normal. Bones and chest wall: No suspicious bony abnormalities. Soft tissues appear unremarkable. IMPRESSION: No acute pulmonary process. Reviewed by: Maria Luisa Davis MD on 08/09/2020 11:55 AM PDT Approved by: Maria Luisa Davis MD on 08/09/2020 11:55 AM PDT Station ID: [id number]
== END 2020-08-09 23:59 | disposition home or self-care (01) ==
LOC: DI.S 08:00
PROVIDERS: ATTEND Physician Assistant Medical
DX: R07.89 Other chest pain (principal)
CPT/HCPCS: 36415; 85025; 86787

== ENCOUNTER 2021-10-25 08:00 | Outpatient (CLI) | payer MEDICARE, OTHER ==
--- NOTE | 2021-10-25 22:05 | XRAY Report ---
PROCEDURE: Hand 3 View LT INDICATIONS: THUMB PAIN TECHNIQUE: 3 views of the hand(s) acquired. COMPARISON: X-ray hand 08/23/2021 FINDINGS: Bones: No fractures or dislocations. No suspicious bony lesions. Soft tissues: No suspicious soft tissue calcifications. IMPRESSION: No visualized acute fracture or dislocation. However, occult injury cannot be excluded. Recommend mak rt interval imaging follow-up in 7-10 days as clinically indicated for additional evaluation. Reviewed by: Maria Luisa Davis MD on 10/25/2021 10:04 PM PDT Approved by: Maria Luisa Davis MD on 10/25/2021 10:04 PM PDT Station ID: [id number]
== END 2021-10-25 23:59 | disposition home or self-care (01) ==
LOC: DI.WOS 08:00
PROVIDERS: ATTEND Physician Assistant
DX: M79.645 Pain in left finger(s) (principal)

== ENCOUNTER 2022-04-19 17:02 | Emergency (ER) | payer MEDICARE, BC ==
[2022-04-19 17:20] VITALS: BP 144/89
--- NOTE | 2022-04-19 18:06 | CT Report ---
PROCEDURE: HEAD WO INDICATIONS: fell, struck head, headache TECHNIQUE: Noncontrast 4.5 mm thick angled axial sections acquired from the foramen magnum to the vertex. For r adiation dose reduction, the following was used: automated exposure control, adjustment of mA and/or kV according to patient size. COMPARISON: 07/31/2016 FINDINGS: Image quality: There is streak artifact seen through the skull base. CSF spaces: Basal cisterns are patent. No extra-axial fluid collections. Ventricles are normal in size and shape. Brain: No midline shift. No intracranial masses or hemorrhage. Eduardo-white matter interface is norm al. Skull and face: Calvarium and visualized facial bones are intact, without suspicious lesions. Sinuses: Visualized sinuses and mastoids are clear. IMPRESSION: No intracranial hemorrhage is seen. No significant intracranial abnormality is seen. Reviewed by: Landon Roberts MD on 04/19/2022 5:04 PM [place] Approved by: Landon Roberts MD on 04/19/2022 5:04 PM [facility] Station ID: [id number]
--- NOTE | 2022-04-19 18:12 | ED Physician Documentation ---
History of Present Illness - Stated complaint Stated Complaint: HEAD INJ - Chief complaint Chief Complaint: Trauma Hd/Nk - Additonal information Additional information: 66-year-old male presents to the emergency department for evaluation of right sided head pain and headache. He has a history of nightmares/night terrors. Last night about midnight he was having an episode when he threw himself out of bed striking the right side of his head behind the ear on a nightstand. Persistent headache since. No anticoagulation. No rhinorrhea, tinnitus loss, of hearing. Review of Systems Constitutional: reports: Reviewed and negative Ears: denies: Loss of hearing, Ear pain, Drainage/discharge, Tinnitus/ringing Nose: denies: Rhinorrhea / runny nose Throat: reports: Reviewed and negative Cardiac: reports: Reviewed and negative Respiratory: reports: Reviewed and negative Neurologic: reports: Headache, Head injury. denies: Generalized weakness, Syncope, Seizure, Confused, LOC PD PAST MEDICAL HISTORY - Past Medical History Cardiovascular: None Respiratory: None Endocrine/Autoimmune: None GI: None : Kidney stones HEENT: None Psych: None Musculoskeletal: None Derm: None - Past Surgical History Past Surgical History: Yes General: Appendectomy - Allergies Allergies/Adverse Reactions: Allergies Allergy/AdvReac Type Severity Reaction Status Date / Time No Known Drug Allergies Allergy Verified 04/19/22 17:19 - Social History Does the pt smoke?: No Smoking Status: Never smoker Does the pt drink ETOH?: Yes Does the pt have substance abuse?: No - Immunizations Immunizations are current?: Yes - POLST Patient has POLST: No POLST Status: Full Code PD ED PE NORMAL - General General: Alert and oriented X 3, No acute distress, Well developed/nourished - HEENT HEENT: Ears normal, Moist mucous membranes, Pharynx benign, Dentition benign, Other (Superficial bruising behind the right ear over the mastoid mildly tender. Bilateral TM exam unremarkable without hemotympanums. No raccoon eyes.). 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 No significant intracranial abnormality.) PD Medical Decision Making - ED course Complexity details: reviewed results, re-evaluated patient, considered differential, d/w patient, d/w family ED course: Well-appearing 66-year-old male presents emergency department for evaluation of closed head injury. Reports having a severe nightmare last night in which he threw himself out of bed striking the right side of his head on the dresser. Has had headaches since. He does present with some localized bruising behind the right ear over the mastoid process. He however has no hemotympanums or rhinorrhea or raccoon eyes. Here in the emergency department routine CT of the head was completed that showed no acute intracranial process. He presents well-appearing with no focal neurodeficits. I discussed with the patient and his at the bedside that this likely represents superficial bruising or contusion behind the ear I did recommend ice, Tylenol and Motrin for analgesia. We discussed that usual routine emergent return precautions for worsening symptoms, worsening headaches uncontrolled vomiting or focal deficits. He was also advised to discuss his nightmares and possible night terrors with his PCP to determine if you benefit from evaluation at a sleep specialist. Departure - Departure Disposition: 01 Home, Self Care Clinical Impression: Closed head injury Qualifiers: Encounter type: initial encounter Qualified Code(s): S09.90XA - Unspecified injury of head, initial encounter Contusion of mastoid Qualifiers: Encounter type: initial encounter Qualified Code(s): S00.83XA - Contusion of other part of head, initial encounter Condition: Stable Record reviewed to determine appropriate education?: Yes Instructions: ED Head Injury Closed Comments: Arley you are seen today in the emergency department because you had a nightmare, fell out of bed and struck your head on the dresser. You do have an area of bruising behind your ear over the mastoid process. Bruising in this area can sometimes be indicative of other injury to the skull or brain. We did do a CT of your head today and there are no findings to suggest skull fracture or bruising or bleeding within the brain. I do recommend that you continue to ice this area for 10 minutes 2-3 times a day. You can take Tylenol and ibuprofen for discomfort. If you develop any sudden severe headache, have slurred speech, facial droop, sudden weakness in your arms or legs then please return immediately to the ER. It does sound like you have fairly significant nightmares. I would recommend that you follow closely with your primary care provider. You can discuss if evaluation with a sleep specialist would be indicated or even consideration of medication at nighttime to help reduce the symptoms.
== END 2022-04-19 18:31 | disposition home or self-care (01) ==
LOC: ED 17:02
DX: S00.83XA Contusion of other part of head, initial encounter (principal); W06.XXXA Fall from bed, initial encounter
CPT/HCPCS: 99283; 99284

== ENCOUNTER 2022-08-14 16:59 | Emergency (ER) | payer MEDICARE, BC ==
--- NOTE | 2022-08-14 17:25 | ED Physician Documentation ---
History of Present Illness - Stated complaint Stated Complaint: DIZZINESS - Chief complaint Chief Complaint: Cardiac - History obtained from History obtained from: Patient - Additonal information Additional information: 66-year-old gentleman with history of localized prostate cancer presents for the evaluation of a dizzy episode. He was sitting in his car stopped at a light and developed severe rotational vertigo and he felt like his head was heavy and he might pass out. It lasted about 45 seconds and then went away. There is a headache associated with it. He had a briefer episode after that that was milder. Feeling okay now but still has a mild headache. He does get headaches on occasion and this is not the worst headache of his life. There is no associated chest pain or trouble breathing. PD PAST MEDICAL HISTORY - Past Medical History Cardiovascular: None Respiratory: None Endocrine/Autoimmune: None GI: None : Kidney stones HEENT: None Psych: None Musculoskeletal: None Derm: None - Past Surgical History Past Surgical History: Yes General: Appendectomy - Present Medications Home Medications: Ambulatory Orders Medication Instructions Recorded Confirmed Aspirin EC [Ecotrin] 81 mg PO DAILY 08/14/22 08/14/22 Omeprazole Magnesium 20 mg PO DAILY 08/14/22 08/14/22 - Allergies Allergies/Adverse Reactions: Allergies Allergy/AdvReac Type Severity Reaction Status Date / Time No Known Drug Allergies Allergy Verified 04/19/22 17:19 - Social History Does the pt smoke?: No Smoking Status: Never smoker Does the pt drink ETOH?: Yes Does the pt have substance abuse?: No - Immunizations Immunizations are current?: Yes - POLST Patient has POLST: No POLST Status: Full Code PD ED PE NORMAL - Vitals Vital signs reviewed: Yes - General General: Alert and oriented X 3, No acute distress - HEENT HEENT: PERRL, EOMI - Neck Neck: Supple, no meningeal sign, No bony TTP - Cardiac Cardiac: RRR, No murmur - Respiratory Respiratory: No respiratory distress, Clear bilaterally - Abdomen Abdomen: Non tender - Neuro Neuro: Alert and oriented X 3, 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 Relevant findings are: Rate: Rate (enter#) (69) Rhythm: NSR (With frequent PVCs) [place]: Normal Intervals: Other (Short [place] interval, But no delta wave) QRS: Normal Ischemia: Non specific changes. No: ST elevation c/w ischemia, ST depression - Labs Labs: Laboratory Tests 08/14/22 08/14/22 08/14/22 17:25 17:25 17:25 WBC 6.9 RBC 4.71 Hgb 14.6 Hct 43.4 MCV 92.1 MCH 31.0 MCHC 33.6 RDW 11.9 L Plt Count 183 MPV 10.2 Neut # (Auto) 3.7 Lymph # (Auto) 2.0 [place] # (Auto) 1.0 Eos # (Auto) 0.2 Baso # (Auto) 0.1 Absolute Nucleated RBC 0.00 Nucleated RBC % 0.0 Sodium 138 Potassium 3.7 Chloride 108 Carbon Dioxide 25 Anion Gap 5.0 L BUN 20 Creatinine 1.0 Estimated GFR (MDRD) 75 L Glucose 117 H Calcium 8.8 Total Bilirubin 0.5 AST 29 ALT 29 Alkaline Phosphatase 80 Troponin I High Sens < 2.3 L Total Protein 6.6 L Albumin 3.8 Globulin 2.8 Albumin/Globulin Ratio 1.4 Lipase 36 PD Medical Decision Making - ED course ED course: 66-year-old gentleman 45-second episode of vertigo earlier today that was quite severe. He is asymptomatic now with normal exam save frequent PVCs on the monitor and on EKG. Work-up in the emergency department consisted of CT angiography of the head and a chest x-ray that were normal and blood work which was unremarkable including troponin. He was counseled on the need for follow- up. I suspect the PVCs are unrelated to his chief complaint. Departure - Departure Disposition: 01 Home, Self Care Clinical Impression: Dizziness Condition: Good Record reviewed to determine appropriate education?: Yes Instructions: ED Dizziness [facility] Comments: You were seen today for an episode of dizzyness that sounds like very bad peripheral vertigo. Your workup included EKG, CTA head and labs. The only abnormal finding was PVCs (premature ventricular contractions) on your EKG, which I doubt was related, but shuold be mentioned to you primary care physician. Call your PCP tomorrow for next available appointment. Return if worse.
[2022-08-14 17:37] LABS: BASOPHILS # (AUTO) 0.1 10^3/uL (0.0-0.1); BASOPHILS % (AUTO) 0.9 %; EOSINOPHILS # (AUTO) 0.2 10^3/uL (0.0-0.7); EOSINOPHILS % (AUTO) 2.3 %; HCT - HEMATOCRIT 43.4 % (42.0-52.0); HGB - HEMOGLOBIN 14.6 g/dL (14.0-18.0); LYMPHOCYTES % (AUTO) 28.8 %; MEAN CORPUSCULAR HGB CONC 33.6 g/dL (32.0-36.0); MEAN CORPUSCULAR VOLUME 92.1 fL (80.0-94.0); MEAN PLATELET VOLUME 10.2 fL (7.4-11.4); MONOCYTES % (AUTO) 14.1 %; NEUTROPHILS # (AUTO) 3.7 10^3/uL (1.5-6.6); NEUTROPHILS % (AUTO) 53.6 %; PLT - PLATELET COUNT 183 10^3/uL (130-450); RED BLOOD COUNT 4.71 10^6/uL (4.70-6.10); RED CELL DISTRIBUTION WIDTH 11.9 % (12.0-15.0); WHITE BLOOD COUNT 6.9 x10^3/uL (4.8-10.8)
[2022-08-14 17:46] LABS: ALBUMIN 3.8 g/dL (3.2-5.5); ALBUMIN/GLOBULIN RATIO 1.4 (1.0-2.2); BILIRUBIN,TOTAL 0.5 mg/dL (0.2-1.0); CALCIUM 8.8 mg/dL (8.5-10.3); POTASSIUM 3.7 mmol/L (3.5-5.0); TOTAL PROTEIN 6.6 g/dL (6.7-8.2)
[2022-08-14] MEDS ORDERED: iohexoL-300 100 ML VIAL ONE (17:51)
--- NOTE | 2022-08-14 17:54 | XRAY Report ---
PROCEDURE: Chest 1 View X-Ray INDICATIONS: Chest pain TECHNIQUE: One view of the chest was acquired. COMPARISON: 08/09/2020 FINDINGS: Surgical changes and devices: None. Lungs and pleura: No pleural effusions or pneumothorax. Lungs are clear. Mediastinum: Mediastinal contours appear normal. Heart size is normal. Bones and chest wall: No suspicious bony lesions. Overlying soft tissues appear unremarkable. IMPRESSION: No acute process. Reviewed by: Sree John MD on 08/14/2022 5:52 PM PDT Approved by: Sree John MD on 08/14/2022 5:52 PM PDT Station ID: [id number]
--- NOTE | 2022-08-14 18:28 | CT Report ---
PROCEDURE: ANGIO HEAD W/WO INDICATIONS: vertigo CONTRAST: 80mL Omni 300 TECHNIQUE: Precontrast 4.5 mm thick angled axial sections acquired from the foramen magnum to the vertex. Afte r the administration of intravenous contrast, 1 mm thick sections acquired through the [place] of [place] is. Postcontrast 4.5 mm thick sections then re-acquired from the foramen magnum to the vertex. 3-di mensional yukhfzx-jederwjka-wbolohqass (MIP) and/or volume rendering reformats were acquired of the c entral intracranial vasculature. For radiation dose reduction, the following was used: automated ex posure control, adjustment of mA and/or kV according to patient size. COMPARISON: None FINDINGS: Image quality: Excellent. Anterior circulation: Mild calcific stenosis of the cavernous segments of the bilateral internal presley tid arteries. Intracranial internal carotid arteries are otherwise normal in size and flow. The flow within the paired anterior cerebral arteries is normal and symmetric. The flow within the middle ce rebral arteries is normal and symmetric. The anterior communicating artery is seen. No aneurysms ar e seen. Posterior circulation: Visualized portions of the vertebral arteries demonstrate normal caliber, and join to form a normal appearing basilar artery. Flow within the posterior cerebral arteries is norm al and symmetric. No aneurysms are seen. CSF spaces: Ventricles are normal in size and shape. Basal cisterns are patent. No extra-axial flu id collections. Brain: No midline shift. No intracranial bleeds or masses. Eduardo-white matter interface appears int act. Skull and face: Calvarium and facial bones appear intact, without suspicious lesions. Sinuses: Visualized sinuses and mastoids are clear. IMPRESSION: No acute process involving the arterial tree of the head. Reviewed by: Sree John MD on 08/14/2022 6:27 PM PDT Approved by: Sree John MD on 08/14/2022 6:27 PM PDT Station ID: [id number]
[2022-08-14 18:39] VITALS: BP 152/93
[2022-08-14] MEDS ORDERED: iohexoL-300 100 ML VIAL IVP ONE (19:09)
== END 2022-08-14 19:10 | disposition home or self-care (01) ==
LOC: ED 16:59
DX: R42 Dizziness and giddiness (principal); Z79.82 Long term (current) use of aspirin
CPT/HCPCS: 36415; 70496; 71045; 80053; 83690; 84484; 85025; 93005; 99283; 99284; Q9967

== ENCOUNTER 2022-12-04 09:05 | Outpatient (CLI) | payer MEDICARE, BC | END 2022-12-04 09:06 | disposition home or self-care (01) | LOC: LAB 09:05 | PROVIDERS: ATTEND Nurse Practitioner Family | DX: C61 Malignant neoplasm of prostate (principal) | CPT/HCPCS: 36415; 84153 ==

== ENCOUNTER 2023-01-25 07:34 | Outpatient (CLI) | payer MEDICARE, BC | END 2023-01-25 07:35 | disposition home or self-care (01) | LOC: LAB 07:34 | PROVIDERS: ATTEND Nurse Practitioner Family | DX: C61 Malignant neoplasm of prostate (principal) | CPT/HCPCS: 81599; 84153 ==

== ENCOUNTER 2023-02-23 07:01 | Outpatient (CLI) | payer MEDICARE, BC ==
[2023-02-23 07:19] LABS: BILIRUBIN,URINE NEGATIVE (NEGATIVE); GLUCOSE, URINE (UA) NEGATIVE (NEGATIVE); KETONES,URINE (UA) NEGATIVE (NEGATIVE); LEUKOCYTE ESTERASE, URINE NEGATIVE (NEGATIVE); NITRITE,URINE NEGATIVE (NEGATIVE); OCCULT BLOOD,URINE NEGATIVE (NEGATIVE); PROTEIN,URINE NEGATIVE (NEGATIVE); UROBILINOGEN,URINE 0.2 (NORMAL) E.U./dL (NORMAL)
[2023-02-23 07:30] LABS: CLARITY,URINE CLEAR (CLEAR); WBC,URINE 0-3 /HPF (0-3)
[2023-02-23 07:31] LABS: BACTERIA,URINE None Seen /HPF (None Seen); RBC,URINE None Seen /HPF (0-5); SQUAMOUS EPITHELIAL CELL,UR NONE SEEN (<= Few)
== END 2023-02-23 07:02 | disposition home or self-care (01) ==
LOC: LAB 07:01
PROVIDERS: ATTEND Urology
DX: R35.0 Frequency of micturition (principal)
CPT/HCPCS: 81001; 87086

== ENCOUNTER 2023-04-27 07:08 | Outpatient (CLI) | payer MEDICARE, BC | END 2023-04-27 07:09 | disposition home or self-care (01) | LOC: LAB 07:08 | PROVIDERS: ATTEND Nurse Practitioner Family | DX: C61 Malignant neoplasm of prostate (principal) | CPT/HCPCS: 81599 ==

== ENCOUNTER 2023-07-26 07:01 | Outpatient (CLI) | payer MEDICARE, BC | END 2023-07-26 07:02 | disposition home or self-care (01) | LOC: LAB 07:01 | PROVIDERS: ATTEND Nurse Practitioner Family | DX: C61 Malignant neoplasm of prostate (principal) | CPT/HCPCS: 81599 ==

== ENCOUNTER 2023-10-24 13:44 | Outpatient (CLI) | payer MEDICARE, BC | END 2023-10-24 13:45 | disposition home or self-care (01) | LOC: LAB 13:44 | PROVIDERS: ATTEND Nurse Practitioner Family | DX: C61 Malignant neoplasm of prostate (principal) | CPT/HCPCS: 36415; 84153 ==